=== PATIENT | female | born 1970 | race American Indian/Alaskan Native ===

== ENCOUNTER 2016-09-16 18:05 | Emergency (ER) | payer SELFPAY ==
--- NOTE | 2016-09-16 20:46 | Emergency Department Report ---
HPI - General Chief Complaint: Medical Clearance Time Seen by Provider: 09/16/16 20:04 - HPI HPI: She is a 46-year-old female presents to ED complaining of left breast lump the past 2 months. Patient states about 2 months ago when she noticed a lump on her left breast. Patient states she had a mammogram done back home in [place] as well as a biopsy. The patient has films of the ultrasound studies done and her ultrasound and biopsy report. Patient states she had an excisional biopsy done last month and on she felt the lump again. Patient states she has no pain in the breast. No discharge or any other problems. She denies any family history of cancer or any other medical history ED Past Medical Hx - Past Medical History Previous Medical History?: No - Surgical History Additional Surgical History: BREAST SURGERY FOR LUMP ON BREAT - Social History Smoking Status: Current Some Day Smoker ED Review of Systems ROS: Stated complaint: LT BREAST LUMP Other details as noted in HPI Constitutional: denies: chills, fever Eyes: denies: eye pain, eye discharge, vision change ENT: denies: ear pain, throat pain Respiratory: denies: cough, shortness of breath, wheezing Cardiovascular: denies: chest pain, palpitations Endocrine: no symptoms reported Gastrointestinal: denies: abdominal pain, nausea, diarrhea Genitourinary: denies: urgency, dysuria, discharge Musculoskeletal: denies: back pain, joint swelling, arthralgia Skin: denies: rash, lesions Neurological: denies: headache, weakness, paresthesias Psychiatric: denies: anxiety, depression Hematological/Lymphatic: denies: easy bleeding, easy bruising Physical Exam - Physical Exam Vital Signs: Vital Signs 09/16/16 18:13 Temperature 98.6 F Pulse Rate 80 Respiratory 18 Rate Blood Pressure 133/79 O2 Sat by Pulse 100 Oximetry Physical Exam: GENERAL: Alert and oriented x3, no apparent distress, Normal Gait, atraumatic. HEAD: Head is normocephalic and a-traumatic. LUNGS: Symetrical with respiration, No wheezing, no rales or crackles, CTAB. HEART: S1, S2 present, regular rate and rhythm without murmur, no rubs, no gallops. Non tender to palpation ABDOMEN: No organomegaly was noted,Positive bowel sounds, soft, and non- distended. . Nontender to palpation on all Quadrants, NO CVA tenderness. BREAST: Symetrical, Supple bilaterally, no nipple discharge bilaterally, 4-5 cm solid mass palpated at 1:00 involving the nipple, nontender to palpation no other lumps palpated. Nonerythematous, SKIN: Warm and dry, No lesions, No ulceration or induration present. ED Course Vital Signs 09/16/16 18:13 Temperature 98.6 F Pulse Rate 80 Respiratory 18 Rate Blood Pressure 133/79 O2 Sat by Pulse 100 Oximetry ED Medical Decision Making - Medical Decision Making 46-year-old female presents with left breast mass ED course: Discussed the patient she will need a referral to breast specialist. Disclosed based on results the patient presented it looks like a breast mass is lately Discussed to follow up with referrals as soon as possible. Vital signs are normal patient is acute distress. She had a son instructions as stated she will call for an appointment Information about [facility] given to patient. Critical care attestation.: If time is entered above; I have spent that time in minutes in the direct care of this critically ill patient, excluding procedure time. ED Disposition Clinical Impression: Breast mass in female Disposition: DC-01 TO HOME OR SELFCARE Is pt being admited?: No Does the pt Need Aspirin: No Condition: Stable Instructions: Breast Mass (ED), Superficial Mass Needle Biopsy (ED), Breast Cancer (ED) Additional Instructions: Call [facility] for an appointment Follow the information given on the information sheet packet Referrals: PRIMARY CARE, [Primary Care Provider] - 3-5 Days [facility] [Outside] - 3-5 Days Forms: Work/School Release Form(ED) Time of Disposition: 21:00
[2016-09-16 21:46] VITALS: BP 144/89
== END 2016-09-16 21:46 | disposition home or self-care (01) ==
LOC: ED 18:05
DX: N63 Unspecified lump in breast (principal); Z72.0 Tobacco use
CPT/HCPCS: 99282

== ENCOUNTER 2016-10-02 13:16 | Outpatient (CLI) | payer OTHER ==
--- NOTE | 2016-10-04 14:01 | Magnetic Resonance Report ---
BILATERAL BREAST MRI WITHOUT AND WITH CONTRAST: 10/02/16 13:16:00 CLINICAL: Newly diagnosed left breast cancer. She had a surgical excision in [place] six weeks ago. COMPARISON:None. TECHNIQUE: Axial 1.0-mm T1 without, axial high resolution 2.0-mm T2 and axial 1.0-mm dynamic Vibrant high-resolution postcontrast T1 fat saturation sequences on a 1.5 Cynthia magnet. The examination was performed with an 8 channel dedicated [place] breast coil. Post processing with CAD and subtraction was performed on an [employer] workstation. 20 cc of Multihance was injected without incident for the contrast portion of the exam. Consent was obtained prior to the administration of the contrast. FINDINGS: Right: Mild background parenchymal enhancement. No mass or suspicious enhancement of the right breast. A right level I axillary lymph node measures 1.8 x 1.3 cm. The outer margin of the lymph node is slightly irregular and the cortex is 6 mm thick. An additional smaller lymph node has cortical thickening of 7 mm. Left: Mild background parenchymal enhancement. There is moderate skin thickening of the breast which is more prominent anteriorly in the periareolar region where it measures 7 mm in thickness. A postop seroma measures 2.8 x 2.6 x 2.3 cm and is deep to either retracted surgical scar or a retracted nipple. A single suspicious focus of non-mass enhancement at the superior margin of the seroma measures 9.8 x 5.1 x 3.7 mm. It demonstrates heterogeneous enhancement with mixed kinetics, 218% peak enhancement and 6% type III washout. No mass or other suspicious enhancement. A suspicious left level I axillary lymph node has suspicious morphology with no central fat and measures 3.1 x 1.8 cm. IMPRESSION: 1. Status post recent left surgical excision with a 2.8 cm postop seroma and 9.8 mm suspicious focal non-Mass enhancement at the superior aspect of the seroma. No other suspicious lesion of the left breast. 2. Bilateral suspicious axillary lymph nodes. 3. Recommend a bilateral diagnostic mammogram to evaluate for calcifications and to better determine the extent of disease. 4. Recommend bilateral ultrasound guided axillary lymph node biopsy. BI-RADS 6 -- Known Cancer
== END 2016-10-02 13:17 | disposition home or self-care (01) ==
LOC: SPVIMAG 13:16
PROVIDERS: ATTEND Internal Medicine Hematology & Oncology
DX: C50.412 Malignant neoplasm of upper-outer quadrant of left female breast (principal); F17.200 Nicotine dependence, unspecified, uncomplicated
CPT/HCPCS: 0159T; A9577; C8908; 77059

== ENCOUNTER 2016-10-09 15:21 | Outpatient (CLI) | payer SELFPAY | END 2016-10-09 15:22 | disposition home or self-care (01) | LOC: LABHHL 15:21 | PROVIDERS: ATTEND Surgery | DX: D36.0 Benign neoplasm of lymph nodes (principal) | CPT/HCPCS: 88305; 88342; 88361 ==

== ENCOUNTER 2016-10-25 07:56 | Inpatient (IN) | payer OTHER ==
[~2016-10-25 07:56] MED LIST: ANCEF/STERILE WATER 2 GM/20 ML IV NR
--- NOTE | 2016-10-25 08:31 | Anesthesia Day of Surgery ---
Anesthesia Day of Surgery - Day of Surgery Patient Examined: Yes Patient H&P Reviewed: Yes Patient is NPO: Yes
--- NOTE | 2016-10-25 08:33 | Anesthesia Consultation ---
Anesthesia Consult and Med Hx Date of service: 10/25/16 - Airway Anesthetic Teeth Evaluation: Good ROM Head & Neck: Adequate Mental/Hyoid Distance: Adequate Mallampati Class: Class III Intubation Access Assessment: Possibly Difficult - Pulmonary Exam CTA: Yes - Cardiac Exam Cardiac Exam: RRR - Pre-Operative Health Status ASA Pre-Surgery Classification: ASA2 Proposed Anesthetic Plan: General - Pulmonary Hx Smoking: No Hx Sleep Apnea: No (TOREY PRE SCREEN NEGATIVE) - Cardiovascular System Hx Hypertension: No - Other Systems Hx Cancer: Yes (breast) Hx Obesity: Yes
[2016-10-25] MEDS ORDERED: NACL 0.9% 1000 ML 1,000 ML IV SCH (09:00)
[2016-10-25] MEDS ORDERED: VERSED IV NR (09:00)
[2016-10-25] MEDS ORDERED: PEPCID IV NR (09:00)
[2016-10-25] MEDS ORDERED: SUBLIMAZE ONE (10:36)
[2016-10-25] MEDS ORDERED: XYLOCAINE MPF 2% ONE (10:36)
[2016-10-25] MEDS ORDERED: DIPRIVAN 10 MG/ML IV ONE (10:36)
[2016-10-25] MEDS ORDERED: WATER FOR IRRIG STERILE IR ONE (13:45)
[2016-10-25] MEDS ORDERED: NEO SYNEPHRINE/NS Syringe(OR USE) IV ONE (14:00)
[2016-10-25] MEDS ORDERED: DECADRON ONE (14:38)
[2016-10-25] MEDS ORDERED: ZOFRAN ONE (14:38)
[2016-10-25] MEDS ORDERED: DILAUDID ONE ×2 (15:48→17:43)
[2016-10-25] MEDS ORDERED: NACL 0.9% 1000 ML 2,000 ML ONE (16:31)
[2016-10-25] MEDS ORDERED: ZOFRAN IV PRN ×2 (17:33→17:51)
[2016-10-25] MEDS ORDERED: PERCOCET 5/325 PO PRN ×2 (17:33→17:51)
[2016-10-25] MEDS ORDERED: DILAUDID IV PRN (17:33)
--- NOTE | 2016-10-25 17:40 | Short Stay Summary ---
Short Stay Documentation Date of service: 10/25/16 - History H&P: obtained from office - Allergies and Medications Current Medications: Allergies No Known Allergies Allergy (Verified 10/19/16 15:42) Home Medications Medication Instructions Recorded Confirmed Last Taken Type HYDROcodone/APAP 5-325 [[place] 1 each PO Q6HR PRN #30 tablet 10/25/16 Unknown Rx 5/325] Active Medications Cefazolin Sodium (Ancef/Sterile Water 2 Gm/20 Ml) 2 gm IV PREOP NR Stop: 10/25/16 23:59 Hydromorphone HCl (Dilaudid) 0.5 mg IV Q10MIN PRN PRN Reason: Pain , Severe (7-10) Stop: 10/28/16 17:34 Sodium Chloride (Nacl 0.9% 1000 Ml) 1,000 mls @ 75 mls/hr IV DIRECT CATRACHITA Last Admin: 10/25/16 09:15 Dose: 75 mls/hr Midazolam HCl (Versed) 2 mg IV PREOP NR Stop: 10/25/16 23:59 Last Admin: 10/25/16 09:40 Dose: 2 mg Ondansetron HCl (Zofran) 4 mg IV ONCE PRN PRN Reason: Nausea And Vomiting Stop: 10/25/16 17:34 Oxycodone/Acetaminophen (Percocet 5/325) 1 tab PO ONCE PRN PRN Reason: Pain, Moderate (4-6) Stop: 10/25/16 17:34 - Brief post op/procedure progress note Date of procedure: 10/25/16 Pre-op diagnosis: Left breast cancer of the upper outer quadrant Post-op diagnosis: same Procedure: Left breast margin revision and left axillary lymph node dissection Anesthesia: GETA Findings: left breast margin revision; left axillary lymph node dissection with bulky axillary disease Surgeon: KADE TAN Estimated blood loss: minimal Pathology: list (left breast margin revision; left ALND) Specimen disposition: to lab Condition: stable - Disposition Condition at discharge: Good Disposition: DC/TX-02 SHRT-TRM GEN HOSP IP Short Stay Discharge Plan Activity: other (no heavy lifting) Diet: regular Wound: other (keep incisions clean and dry; may shower in 24 hours; no baths, pools or lakes) Follow up with: STEPHANIE KNUTSON MD [Primary Care Provider] - 7 Days KADE TAN MD [Staff Physician] - 7 Days Prescriptions: HYDROcodone/APAP 5-325 [[place] 5/325] 1 each PO Q6HR PRN #30 tablet PRN Reason: Pain
[2016-10-25] MEDS ORDERED: REGLAN PO PRN (17:51)
[2016-10-25] MEDS ORDERED: TYLENOL PO PRN (17:51)
[2016-10-25] MEDS ORDERED: SODIUM CHLORIDE FLUSH SYRINGE 10 ML IV PRN (17:51)
--- NOTE | 2016-10-25 17:51 | Operative Report ---
Operative Report Operative Report: Date of Service: 10/25/2016 Preoperative diagnosis: Left breast cancer upper outer quadrant and axillary elly metastasis Postoperative diagnosis: same Procedure: Left breast margin revision and left axillary lymph node dissection Surgeon: Alida Null M.D. Asst.: Mr. Gonzalez Anesthesia: Gen. Findings: Left breast margin revision with seroma left intact and all margins revised. Bulky left axillary lymph node disease. 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 Surgery was performed in [facility]. Margins from breast cancer surgery were not assessed and receptors were not performed. I recently saw patient in consultation and performed bilateral axillary lymmph node biopsy of suspicious lymph nodes with left axillary lymph node positive for malignancy and right negative, ER/SC positive. Recommendations were to proceed with left breast margin revision given surgical margins unknown and proceeding with a left axillary lymph node dissection. Patient understands she will also need adjuvant chemoradiation therapy. Patient wishes to proceed with the above procedure. Procedure in detail: The patient was taken to the operating room and was placed supine. Gen. anesthesia was administered. The left breast and axilla were prepped and draped in the normal sterile operative fashion. A marking pen was used to aline the area of incision to encompass the prior breast incision. A skin incision was made with a 15 blade knife and dissection taken down to the subcutaneous tissue. The seroma cavity to also include margins were appropriately revised to include cephalad, caudal, medial and lateral margins. The seroma cavity was not encountered and was left intact with surrounding breast tissue excised. Dissection was taken down posterior to the pectoralis muscle. Specimen was sent to x-ray and to pathology. Hemostasis was obtained with the Bovie cautery. The breast tissues were mobilized and approximated and closed using interrupted 3-0 Vicryl and the skin closed and brought together using interrupted 4-0 Monocryl followed by skin affix. Attention was taken towards the left axillary lymph node dissection. Lazy S marking was made and skin incision was made with a 15 blade knife and dissection taken down to the subcutaneous tissues. The axillary fascia was opened with bovie cautery. Palpable known 3.5 cm lymph node was identified. First began with identification of the axillary vein and latissmuss muscle followed by identification of the long thoracic nerve and thoracodorsal bundle. Both nerve bundles were identified and left intact and unharmed. Lymph nodes were then removed from the above boundaries. Significant axillary elly bulky disease was noted. Lymph node dissection was then sent to pathology. The axillary cavity was irrigated and suctioned. Hemostasis was noted. A 19 Occitan drain was placed. Axillary fascia was approximated and closed using interrupted 3-0 Vicryl and skin brought together and closed using 4-0 Monocryl followed by skin affix. She tolerated surgery very well and was awakened from anesthesia without complications and transferred to PACU in good condition.
[2016-10-25] MEDS ORDERED: MORPHINE IV PRN (17:54)
[2016-10-25] MEDS ORDERED: LACTATED RINGERS 1,000 ML IV SCH (18:00)
--- NOTE | 2016-10-25 18:27 | Post Anesthesia Evaluation ---
- Post Anesthesia Evaluation Patient Participated: Yes Airway Patent: Yes Stable Respiratory Function: Yes Temp > 96.8F: Yes Pain Manageable: Yes Adequeate Hydration: Yes Anesthesia Complications: No Block Receding Appropriately: Not Applicable
--- NOTE | 2016-10-26 08:06 | Progress Note ---
Assessment and Plan This is a 46 year old lady with Stage II left breast cancer of the upper outer quadrant POD#1 L ALND and left breast margin revision. Pain well controlled and no acute events overnight. 1. Left breast and axillary incisions healing well; ALY drain to bulb suction. 2. OOB to hallway. 3. ALY drain education. 4. D/C planning for today. Subjective Date of service: 10/26/16 Principal diagnosis: Left breast cancer of the upper outer quadrant and L axillary elly metasts Interval history: This is a 46 year old lady POD #1 left ALND and left breast margin revision Objective - Constitutional Vitals: Vital Signs - 12hr 10/26/10/26/16 10/26/16 00:00 04:00 06:00 Temperature 98.6 F 98.6 F 98.6 F Pulse Rate 66 68 71 Respiratory 16 16 16 Rate Blood Pressure 138/60 103/69 111/69 General appearance: Present: no acute distress - EENT Eyes: PERRL, EOM intact ENT: hearing intact, clear oral mucosa, dentition normal Ears: bilateral: normal - Neck Neck: supple, normal ROM - Respiratory Respiratory effort: normal Respiratory: bilateral: CTA - Breasts Breasts: other (left breast incision clean, dry and intact; left axillary incision clean, dry and intact, ALY drain to bulb suction) - Cardiovascular Rhythm: regular Extremities: no ischemia, pulses intact, pulses symmetrical, No edema, normal temperature, normal color, Full ROM - Gastrointestinal General gastrointestinal: Present: soft, non-tender, non-distended Rectal Exam: deferred - Genitourinary Female genitourinary: deferred - Integumentary Integumentary: clear, warm, dry - Musculoskeletal Musculoskeletal: strength equal bilaterally - Neurologic Neurologic: CNII-XII intact, moves all extremities - Psychiatric Psychiatric: appropriate mood/affect, intact judgment & insight, memory intact, cooperative
--- NOTE | 2016-10-26 08:22 | Mammography Report ---
SPECIMEN RADIOGRAPH LEFT BREAST: 10/25/16 07:56:00 CLINICAL: Reexcision of a known breast cancer. He had previous surgery was performed in [place] FINDINGS: A spiculated mass with architectural distortion is identified in the specimen. No calcifications. No localizer clip or hookwire. IMPRESSION: Excision of a known cancer.
[2016-10-26 10:06] VITALS: BP 122/67
== END 2016-10-26 11:22 | disposition home or self-care (01) | DRG 581 ==
LOC: OR 07:56 → OB 17:51
PROVIDERS: ADMIT Surgery; ATTEND Surgery
PROC: 07B60ZZ Excision of Left Axillary Lymphatic, Open Approach (ICD-10-PCS; principal; 2016-10-25)
PROC: 0HBU0ZZ Excision of Left Breast, Open Approach (ICD-10-PCS; 2016-10-25)
DX: C50.412 Malignant neoplasm of upper-outer quadrant of left female breast (principal); N63 Unspecified lump in breast
CPT/HCPCS: 76098; 81025; 88307; 88361; J0690; J1100; J1170; J2250; J2270; J2370; J2405; J2704; J3010; J7030; J7120

== ENCOUNTER 2017-10-25 10:05 | Outpatient (CLI) | payer SELFPAY | END 2017-10-25 10:06 | disposition home or self-care (01) | LOC: LABHHL 10:05 | PROVIDERS: ATTEND Surgery | DX: D36.0 Benign neoplasm of lymph nodes (principal); E66.9 Obesity, unspecified; Z90.12 Acquired absence of left breast and nipple; F17.210 Nicotine dependence, cigarettes, uncomplicated | CPT/HCPCS: 88305; 88342; 88361 ==

== ENCOUNTER 2017-10-29 08:39 | Outpatient (CLI) | payer SELFPAY ==
[2017-10-29 09:57] LABS: Blood Urea Nitrogen 19 mg/dL (7-17)
--- NOTE | 2017-10-29 13:12 | Cat Scan Report ---
CT CHEST WITH CONTRAST: HISTORY: Malignant neoplasm of upper outer left breast. COMPARISON: none. TECHNIQUE: Helical CT in 1.25mm intervals following IV contrast. Sagittal and coronal reformatted images. FINDINGS: Chest wall: There is diffuse skin thickening throughout the left breast. A spiculated masslike lesion is noted in the upper outer left breast measuring approximately 2.9 x 3.9 cm in axial dimension. There are 2 nodular densities in the left axillary soft tissues measuring 1.9 cm and 1.4 cm which probably represent enlarged axillary lymph nodes. No additional thoracic adenopathy is detected. Thyroid gland: Normal. Tracheobronchial tree: Normal. Esophagus: Normal. Heart: Normal. Pericardium: Normal. Mediastinum: Normal. Lung [place]: Normal. No suspicious pulmonary nodule or mass. Pleural Spaces: Normal. Musculoskeletal: Intact. No suspicious bony lesion is detected. IMPRESSION: Left breast mass with diffuse skin thickening and 2 mildly enlarged left axillary lymph nodes consistent with breast cancer. No evidence for pulmonary nodule, mediastinal adenopathy or bony lesion.
--- NOTE | 2017-10-29 13:15 | Cat Scan Report ---
CT ABDOMEN PELVIS WITH CONTRAST: HISTORY: Malignant neoplasm of upper outer left breast. COMPARISON: none. TECHNIQUE: Helical CT in 1.25mm intervals following IV contrast. Sagittal and coronal reconstructions. FINDINGS: Liver: Normal. Biliary system: Normal. Pancreas: Normal. Spleen: Normal. Kidneys/ureters/bladder: Normal. Adrenal glands: Normal. Aorta: Normal. Intestines: Normal. Appendix: Normal. Pelvic viscera: Normal. Ascites: None. Adenopathy: None. Musculoskeletal: Intact. No suspicious bony lesion is detected. IMPRESSION: Unremarkable CT scan of the abdomen and pelvis with contrast. No evidence for metastatic disease or acute process.
--- NOTE | 2017-10-29 13:16 | Nuclear Medicine Report ---
BONE SCAN: History: Malignant neoplasm of upper outer left breast. Comparison: No previous bone scan. Correlation is made with CT chest abdomen pelvis with contrast performed the same day. After injection of isotope, gamma camera imaging of the bony system was done. There is a normal uptake of isotope throughout the bony structures without areas of significantly increased or decreased uptake. Normal uptake in the urinary system is seen. There is vague diffuse uptake throughout the left breast soft tissues. IMPRESSION: No evidence for bony metastasis.
== END 2017-10-29 08:40 | disposition home or self-care (01) ==
LOC: NM 08:39
PROVIDERS: ATTEND Surgery
DX: C50.412 Malignant neoplasm of upper-outer quadrant of left female breast (principal); E66.9 Obesity, unspecified; Z90.12 Acquired absence of left breast and nipple
CPT/HCPCS: 36415; 71260; 74177; 78306; 82565; 84520; A9503; Q9967